=== PATIENT | male | born 1950 | race Two or more races ===

== ENCOUNTER → 2018-10-16 | Outpatient (CLI) | payer OTHER, MEDICARE ==
[~2018-10-16] MED LIST: ATEN25TA PO; CEFD300C37 PO; LISI-170 PO; SIMV40TA3 PO
== END | disposition home or self-care (01) ==
LOC: RAD 16:25
PROVIDERS: ATTEND Family Medicine
DX: J18.9 Pneumonia, unspecified organism (principal)
CPT/HCPCS: 71046

== ENCOUNTER 2018-11-09 14:26 | Emergency (ER) | payer MEDICARE, OTHER ==
[~2018-11-09] VITALS: Ht 165.1 cm; Wt 66.9 kg
[2018-11-09 15:27] LABS: MICROSCOPIC AUTO
[2018-11-09 15:28] LABS: CULTURE INDICATED? NO
--- NOTE | 2018-11-09 15:48 | NUR ---
REFUSING PIT BLOOD DRAW
--- NOTE | 2018-11-09 17:53 | NUR ---
Assumed care of patient. C/O non-radiating left flank pain. Denies hematuria and all other urinary symptoms. Family at bedside. Will continue to monitor.
[2018-11-09 18:13] LABS: ALANINE AMINOTRANSFERASE 32 U/L (12-78); ALBUMIN 3.9 g/dL (3.4-5.0); ANION GAP 7 mmol/L (5-15); CALCIUM 9.4 mg/dL (8.5-10.1); CHLORIDE 107 mmol/L (98-107); CREATININE 1.15 mg/dL (0.7-1.3)
[2018-11-09 18:15] LABS: ALKALINE PHOSPHATASE 82 U/L (45-117); BILIRUBIN,TOTAL 0.7 mg/dL (0.2-1.0); TOTAL PROTEIN 8.6 g/dL (6.4-8.2)
[2018-11-09] MEDS ORDERED: METHOCARBAMOL 750 MG TABLET ONE (18:41)
[2018-11-09] MEDS ORDERED: KETOROLAC 60 MG/2 ML ONE (18:41)
[2018-11-09] MEDS ORDERED: KETOROLAC 30 MG/1 ML IM ONE (19:00)
[2018-11-09] MEDS ORDERED: METHOCARBAMOL 750 MG TABLET PO ONE (19:00)
[2018-11-09 19:08] LABS: <RBC MORPHOLOGY> NORMAL; BASOPHILS # (AUTO) 0.01 x10^3/uL (0-0.1); BASOPHILS % (AUTO) 0 % (0-1); EOSINOPHILS # (AUTO) 0.24 x10^3/uL (0-0.4); EOSINOPHILS % (AUTO) 3 % (1-7); LYMPHOCYTES # (AUTO) 1.21 x10^3/uL (1-3.4); LYMPHOCYTES % (AUTO) 14 % (22-44); MD MORPH REVIEW ONLY; MEAN CORPUSCULAR HEMOGLOBIN 30.8 pg (27.5-34.5); MEAN CORPUSCULAR HGB CONC 33.6 g/dL (33.2-36.2); MEAN CORPUSCULAR VOLUME 91.7 fL (81-97); MEAN PLATELET VOLUME 13.1 fL (7.4-10.4); MONOCYTES # (AUTO) 0.66 x10^3/uL (0.2-0.8); MONOCYTES % (AUTO) 8 % (2-9); NEUTROPHILS % (AUTO) 75 % (42-75); PLATELET COUNT 132 x10^3/uL (130-400); RED CELL DISTRIBUTION WIDTH 15.1 % (9.4-14.8)
[2018-11-09 19:09] LABS: <PLATELET ESTIMATE> ADEQUATE; GIANT PLATELETS 1+; LARGE PLATELETS 2+
[2018-11-09 19:16] VITALS: BP 145/94
--- NOTE | 2018-11-09 19:16 | NUR ---
Medicated per eMAR. VSS.
--- NOTE | 2018-11-09 20:13 | NUR ---
Patient/Caregiver given discharge instructions and they have confirmed that they understand the instructions. Patient ambulatory with steady gait.
== END 2018-11-09 20:13 | disposition home or self-care (01) ==
LOC: ED 20:07
DX: M54.42 Lumbago with sciatica, left side (principal); I10 Essential (primary) hypertension
CPT/HCPCS: 36415; 74176; 80053; 81001; 85025; 96372; 99284; J1885

== ENCOUNTER 2020-04-30 18:53 | Emergency (ER) | payer MEDICARE, OTHER ==
[~2020-04-30] VITALS: Ht 167.6 cm; Wt 68.1 kg
[~2020-04-30 18:53] MED LIST changes: +SIMV40TA20 PO; -SIMV40TA3 PO
--- NOTE | 2020-04-30 19:20 | NUR ---
pt to room from lobby
--- NOTE | 2020-04-30 19:41 | NUR ---
ASSUMED CARE OF PT AT THIS TIME PT ON ALL MONITORS IN NAD AT THIS TIME
[2020-04-30 20:18] VITALS: BP 131/88
[2020-04-30 20:19] LABS: BASOPHILS % (AUTO) 1 % (0-1); EOSINOPHILS % (AUTO) 2 % (1-7); LYMPHOCYTES % (AUTO) 17 % (22-44); MEAN CORPUSCULAR HEMOGLOBIN 30.9 pg (27.5-34.5); MEAN CORPUSCULAR HGB CONC 33.4 g/dL (33.2-36.2); MEAN PLATELET VOLUME 13.3 fL (7.4-10.4); MONOCYTES % (AUTO) 17 % (2-9); NEUTROPHILS % (AUTO) 64 % (42-75); PLATELET COUNT 111 x10^3/uL (130-400); RED BLOOD COUNT 5.37 x10^6/uL (4.38-5.82); RED CELL DISTRIBUTION WIDTH 13.9 % (9.4-14.8)
[2020-04-30 20:30] LABS: ALANINE AMINOTRANSFERASE 49 U/L (12-78); ALBUMIN 3.7 g/dL (3.4-5.0); ANION GAP 9 mmol/L (5-15); CHLORIDE 102 mmol/L (98-107); CREATININE 1.12 mg/dL (0.7-1.3)
[2020-04-30 20:34] LABS: ALKALINE PHOSPHATASE 80 U/L (45-117); TOTAL PROTEIN 8.4 g/dL (6.4-8.2); TROPONIN I < 0.015 ng/mL (0.000-0.045)
[2020-04-30 20:38] LABS: BILIRUBIN,TOTAL 0.8 mg/dL (0.2-1.0)
[2020-04-30 21:07] LABS: MD MORPH REVIEW ONLY
[2020-04-30 21:08] LABS: ANISOCYTOSIS 1+
[2020-04-30 21:09] LABS: <PLATELET ESTIMATE> ADEQUATE; <PLT MORPHOLOGY> NORMAL PLT MORPH; GIANT PLATELETS 1+; LARGE PLATELETS 2+; POLYCHROMASIA 1+
== END 2020-04-30 22:16 | disposition home or self-care (01) ==
LOC: ED 20:45
DX: R07.89 Other chest pain (principal); I10 Essential (primary) hypertension; R94.31 Abnormal electrocardiogram [ECG] [EKG]
CPT/HCPCS: 36415; 71045; 80053; 83735; 84484; 85025; 93005; 99285

== ENCOUNTER 2020-05-12 22:18 | Emergency (ER) | payer MEDICARE ==
[~2020-05-12] VITALS: Ht 162.6 cm; Wt 68.8 kg
[2020-05-12 23:31] LABS: BASOPHILS % (AUTO) 0 % (0-1); EOSINOPHILS % (AUTO) 3 % (1-7); LYMPHOCYTES % (AUTO) 14 % (22-44); MEAN CORPUSCULAR HEMOGLOBIN 31.5 pg (27.5-34.5); MEAN CORPUSCULAR HGB CONC 34.7 g/dL (33.2-36.2); MEAN PLATELET VOLUME 13.5 fL (7.4-10.4); MONOCYTES % (AUTO) 10 % (2-9); NEUTROPHILS % (AUTO) 74 % (42-75); PLATELET COUNT 104 x10^3/uL (130-400); RED BLOOD COUNT 5.18 x10^6/uL (4.38-5.82); RED CELL DISTRIBUTION WIDTH 13.6 % (9.4-14.8)
[2020-05-12 23:51] LABS: ALBUMIN 3.6 g/dL (3.4-5.0); ANION GAP 7 mmol/L (5-15); CALCIUM 9.2 mg/dL (8.5-10.1); CHLORIDE 98 mmol/L (98-107)
[2020-05-12 23:55] LABS: CREATININE 1.27 mg/dL (0.7-1.3); TROPONIN I < 0.015 ng/mL (0.000-0.045)
--- NOTE | 2020-05-13 00:03 | NUR ---
LATE ENTRY. CC OF CHEST TIGHTNESS IN THE LEFT SIDE UPPER CHEST SINCE April THAT HAS WORSENED AND PT IS CONCERED ABOUT HEART ATTACK. PT STATES HE WAS SEEN HERE BEFORE AND WAS DISCHARGED, NOW HE HAS WORSENING TIGHTNESS AND LEFT BICEP AND PINKY PAIN 01/02. PT TOOK BABY ASPIRIN IN AM. PT FROM [facility], SPEAKS [place], AT BEDSIDE.
[2020-05-13 00:06] LABS: MD SCAN
[2020-05-13 00:37] VITALS: BP 117/77
== END 2020-05-13 00:39 | disposition home or self-care (01) ==
LOC: ED 22:40
DX: R07.89 Other chest pain (principal); E87.6 Hypokalemia; J90 Pleural effusion, not elsewhere classified; R94.31 Abnormal electrocardiogram [ECG] [EKG]; I10 Essential (primary) hypertension
CPT/HCPCS: 36415; 71045; 80048; 82040; 84484; 85025; 93005; 99285